=== PATIENT | female | born 1970 | race Caucasian/White ===

== ENCOUNTER → 2017-06-01 | Outpatient (CLI) | payer BC ==
--- NOTE | 2017-06-01 11:30 | USB ---
Reason for exam: additional evaluation requested from abnormal screening. US Breast RT Right breast ultrasound includes all four quadrants, the retroareolar region and axilla. Finding demonstrates a 1.4 x 0.9 x 1.6cm oval, cystic lesion at 1 o'clock, a 0.7 x 0.3 x 0.5cm oval, mixed, hypoechoic lesion at 9 o'clock, a 2.0 x 1.4 x 2.1cm oval, cystic, vascular stalk lesion at 10 o'clock at palpable and a 0.7 x 0.5 x 0.6cm oval, cystic lesion at 10 o'clock. These results were verbally communicated with the patient and result sheet given to the patient on 06/01/17. ASSESSMENT: Probably benign, BI-RAD 3 RECOMMENDATION: Ultrasound of the right breast in 6 months. Manage patient on a clinical basis.
--- NOTE | 2017-06-02 05:15 | WWHP ---
DATE OF SERVICE: 06/01/2017 CHIEF COMPLAINT: The patient is here for her routine gynecologic exam and mammogram. HPI: This is a 46-year-old G3, P3 with an LMP of 2008 who is status post endometrial ablation. The patient states that it has been about 3 years since her last pelvic exam. Her last mammogram was about 5 years ago. She states she has been experiencing right breast soreness for about 3 weeks. She thinks she may have felt a lump on the right side at about the 10 o'clock position. She states the soreness has improved and is very slight at this time. She has also been experiencing infrequent left pelvic pains and believes it may involved her left ovary. She can notice a twinge on the left side once in a while when she moves a certain way such as twisting at the hips. This has been occurring infrequently over the last six months. She believes it occurs about every other month. She wonders if it is related to ovulation. The pains are usually very quick and does not usually stop her from doing her activity. She is otherwise without complaints. Her is status post vasectomy. PAST MEDICAL HISTORY: Anxiety. MEDICATIONS: 1. Paxil CR 12.5 mg daily. 2. Ativan 0.5 mg p.r.n. Allergies to SULFA, PENICILLIN, MACROBID, CEFTIN and BIAXIN, all of which caused rashes or hives. PAST SURGICAL HISTORY: Endometrial ablation in 2008, foot surgery for bunions in 1987. 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 The ablation was for painful menses. PAST OB HISTORY: Three vaginal deliveries. FAMILY HISTORY: Mother has hypertension and thyroid disease. She also has several aunts with thyroid problems. SOCIAL HISTORY: She briefly smoked while in college, but quit after that. She has about 0 to 1 alcoholic drink per week and denies drug use. 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 REVIEW SYSTEMS: She believes she has gained about 10 pounds over the last year. She denies respiratory, cardiac or GI problems. PHYSICAL EXAM: Blood pressure 136/72. Height is 5 feet 1-1/2 inches. Weight 139 pounds. Temperature 97.8. Pulse 56. This is a well-developed, well- nourished white female who is alert and oriented x3 in acute distress. HEENT is within normal limits. NECK: Supple without mass or thyromegaly. CHEST AND LUNGS: Clear to auscultation. HEART: Regular rate and rhythm. BREASTS: There is moderate fibrocystic changes throughout the breast. There is a slightly more prominent fibrous type area at the 10 o'clock position of the right breast measuring approximately 1.5 x 1.5 cm. She states that this is the area of her tenderness. This spot was marked for further breast imaging. There are no other masses noted. There is no nipple discharge. Axillary exam is negative for adenopathy BACK: Negative for CVA tenderness. ABDOMEN: Soft, nontender without palpable masses. PELVIC EXAM: Normal external genitalia. Cervix and vagina appear normal. There is no evidence of prolapse. There is no unusual discharge. There is no cervical motion tenderness. The uterus is mid position, nongravid size and nontender. There are no palpable adnexal masses or tenderness. Rectovaginal exam is negative for mass or tenderness and is negative for occult blood. EXTREMITIES: Nontender. IMPRESSION: 1. A 46-year-old female with a 3-week history of right mastodynia with slightly prominent fibrous type area at the 10 o'clock position of the right breast. Differential diagnosis will include fibrocystic changes as well as possible breast neoplasm. 2. Left pelvic intermittent pains x6 months, which is very infrequent and brief without any significant physical findings at this time. 3. Her is status post vasectomy. PLAN: 1. Pap smear was performed. 2. Self-breast examination was discussed. 3. Diagnostic mammogram with right breast ultrasound will be done today. 4. Pelvic ultrasound will be scheduled. 5. If nothing significant is found with the pelvic ultrasound, will proceed with conservative management. 6. Breast workup and followup will depend on the findings of today's imaging studies. 7. She will return in one year and p.r.n. MTDD
== END | disposition home or self-care (01) ==
LOC: WWCWWP 07:50
PROVIDERS: ATTEND Obstetrics & Gynecology
DX: R92.8 Other abnormal and inconclusive findings on diagnostic imaging of breast (principal); N64.4 Mastodynia
CPT/HCPCS: 76641; G0204

== ENCOUNTER → 2017-06-07 | Outpatient (CLI) | payer BC ==
--- NOTE | 2017-06-07 15:14 | US ---
EXAMINATION TYPE: US pelvic complete DATE OF EXAM: 06/07/2017 COMPARISON: NONE CLINICAL HISTORY: R10.2 Pelvic Pain. Pt states LLQ tenderness/ fullness TECHNIQUE: Transabdominal (TA) Date of LMP: 2008 due to ablation EXAM MEASUREMENTS: Uterus: 8.6 x 3.5 x 4.4 cm Endometrial Stripe: 0.5 cm Right Ovary: 2.2 x 2.1 x 2.5 cm Left Ovary: 3.2 x 1.9 x 2.5 cm 1. Uterus: Anteverted Heterogeneous, with Nabothian cyst in cervix 2. Endometrium: wnl 3. Right Ovary: wnl 4. Left Ovary: wnl 5. Bilateral Adnexa: wnl 6. Posterior cul-de-sac: wnl IMPRESSION: 1. Normal pelvic ultrasound
== END | disposition home or self-care (01) ==
LOC: RADUSWWP 14:12
PROVIDERS: ATTEND Obstetrics & Gynecology
DX: R10.2 Pelvic and perineal pain (principal)
CPT/HCPCS: 76856

== ENCOUNTER → 2018-01-05 | Outpatient (CLI) | payer BC ==
--- NOTE | 2018-01-05 09:37 | USB ---
Reason for exam: follow-up at short interval from prior study. Physical Findings: Nurse Summary: cystic cluster right breast upper outer quadrant 1cm palpable 12 o'clock (nurse mj). US Breast RT Right breast ultrasound includes all four quadrants, the retroareolar region and axilla. Finding demonstrates a 1.3 x 0.9 x 1.4cm oval, cystic lesion at 1 o'clock, a 0.6 x 0.3 x 0.5cm oval, cystic cluster at 1 o'clock, a 0.5 x 0.4 x 0.4cm mixed lesion at 8 o'clock, a 0.7 x 0.4 x 0.5cm oval lesion too small to characterize at 9 o'clock, a 1.6 x 1.1 x 1.4cm oval, cystic lesion at 10 o'clock and a 1.4 x 0.8 x 1.0cm cystic cluster at 10 o'clock. These results were verbally communicated with the patient and result sheet given to the patient on 01/05/18. ASSESSMENT: Benign, BI-RAD 2 RECOMMENDATION: Routine screening mammogram of both breasts in 4 months. Back on schedule for May 2018.
== END | disposition home or self-care (01) ==
LOC: RADUSWWP 08:14
PROVIDERS: ATTEND Obstetrics & Gynecology
DX: N63.10 Unspecified lump in the right breast, unspecified quadrant (principal)

== ENCOUNTER → 2018-06-27 | Outpatient (CLI) | payer BC ==
[2018-06-27 11:45] VITALS: BP 112/66; PULSE 63; TEMP 97.1; BMI 27.1
--- NOTE | 2018-06-27 12:34 | P.HPOB ---
History of Present Illness H&P Date: 06/27/18 Chief Complaint: The patient is here for her routine gynecologic exam and mammogram. This is a 47-year-old G3 PIII with an LMP of 2008. She steps post endometrial ablation with amenorrhea since then. She denies any significant hot flashes and denies any vaginal bleeding. She is without gynecologic complaints. Review of Systems The patient has gained 5 pounds over the last year. She denies respiratory, cardiac, or G.I. problems. 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 She has been amenorrheic since her ablation in 2008 done for dysmenorrhea. 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 - Past Family History Mother Family Medical History: Hypertension, Thyroid Disorder Additional Family Medical History / Comment(s): Several aunts have thyroid problems. Medications and Allergies Home Medications Medication Instructions Recorded Confirmed Type Fluticasone Nasal [place] [Flonase 1 spray EA NOSTRIL DAILY PRN 06/27/18 06/27/18 History Nasal [place]] Allergies Allergy/AdvReac Type Severity Reaction Status Date / Time clarithromycin [From Biaxin] Allergy Rash/Hives Verified 06/27/18 11:40 nitrofurantoin Allergy Rash/Hives Verified 06/27/18 11:40 [From Macrobid] nitrofurantoin Allergy Rash/Hives Verified 06/27/18 11:40 macrocrystalline [From Macrobid] Penicillins Allergy Rash/Hives Verified 06/27/18 11:40 Sulfa (Sulfonamide Allergy Rash/Hives Verified 06/27/18 11:40 Antibiotics) Exam Vital Signs Temp Pulse BP 06/27/18 11:43 97.1 F L 63 112/66 Intake and Output 06/26/18 06/27/18 06/27/18 22:59 06:59 14:59 Other: Weight 65.317 kg Height 5'1", BMI 27.2. This is a well-developed well-nourished white female who is alert and oriented times 3 in no acute distress. HEENT: Within normal limits. NECK: Supple without mass or thyromegaly. CHEST AND LUNGS: Clear to auscultation. HEART: Regular rate and rhythm. BREASTS: Are without mass or discharge. AXILLARY EXAM: Negative for adenopathy. BACK: Negative for CVA tenderness. ABDOMEN: Soft, nontender, without palpable masses. PELVIC EXAM: Normal external genitalia. Cervix and vagina appear normal. There is no unusual discharge. There is no evidence of prolapse. The uterus is midposition, nongravid size and nontender. There are no palpable adnexal masses or tenderness. RECTAL EXAM: negative for mass or tenderness and is negative for occult blood. EXTREMITIES: Nontender. IMPRESSION: 1. 47-year-old female with normal gynecologic exam. 2. Possible perimenopause, with amenorrhea following endometrial ablation. Her is status post vasectomy. PLAN: 1. Pap smear was deferred to since she had a normal one on 06/01/2017. 2. Breast awareness was discussed. 3. Screening mammogram will be done today. 4. Osteoporosis prevention was discussed. 5. She will return in one year.
--- NOTE | 2018-06-29 11:23 | MM ---
Reason for exam: screening (asymptomatic). Last mammogram was performed 1 year and 1 month ago. Physical Findings: A clinical breast exam by your physician is recommended on an annual basis and results should be correlated with mammographic findings. MG Screening Mammo w CAD Bilateral CC and MLO view(s) were taken. Prior study comparison: June 01, 2017, bilateral MG diagnostic mammo w CAD ISAAC. The breast tissue is heterogeneously dense. This may lower the sensitivity of mammography. Finding: There are typically benign, multiple, varied sized, oval masses in both breasts consistent with waxing/waning cysts. No significant changes in finding since June 01, 2017. ASSESSMENT: Benign, BI-RAD 2 RECOMMENDATION: Routine screening mammogram of both breasts in 1 year.
== END | disposition home or self-care (01) ==
LOC: WWCWWP 11:10
PROVIDERS: ATTEND Obstetrics & Gynecology
DX: Z12.31 Encounter for screening mammogram for malignant neoplasm of breast (principal)
CPT/HCPCS: 77067

== ENCOUNTER → 2019-08-07 | Outpatient (CLI) | payer BC ==
[2019-08-07 16:10] VITALS: BP 130/80; PULSE 62; RESP 18; TEMP 98.6; BMI 25.9
--- NOTE | 2019-08-07 16:46 | P.HPOB ---
History of Present Illness H&P Date: 08/07/19 Chief Complaint: The patient is here for her routine gynecologic exam and ma mmogram. This is a 49 year old with an LMP of 2008. She is status post endometrial ablation in 2008 and has been amenorrheic since then. She denies any significant hot flashes and denies any vaginal bleeding. She occasionally wakes up feeling warm at night but this is not a very big problem for her. She is without gynecologic complaints. Review of Systems The patient has lost 7 pounds over the last year. She denies respiratory, cardiac, or G.I. problems. Past Medical History Past Medical History: No Reported History Additional Past Medical History / Comment(s): Seasonal ALLERGIES. 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 She has been amenorrheic since her ablation in 2008 done for dysmenorrhea. History of Any Multi-Drug Resistant Organisms: None Reported Past Surgical History: Uterine Ablation Additional Past Surgical History / Comment(s): foot surgery. Endometrial ablation 2008. Past Psychological History: Anxiety Smoking Status: Former smoker Past Alcohol Use History: Rare Additional Past Alcohol Use History / Comment(s): Quit smoking in college. 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 - Past Family History Mother Family Medical History: Hypertension, Thyroid Disorder Additional Family Medical History / Comment(s): Several aunts have thyroid problems. Medications and Allergies Home Medications Medication Instructions Recorded Confirmed Type Fluticasone Nasal [place] [Flonase 1 spray EA NOSTRIL DAILY PRN 06/27/18 08/07/19 History Nasal [place]] Loratadine [Claritin] 10 mg PO DAILY 08/07/19 08/07/19 History Vortioxetine Hydrobromide 10 mg PO DAILY 08/07/19 08/07/19 History [Trintellix] Allergies Allergy/AdvReac Type Severity Reaction Status Date / Time clarithromycin [From Biaxin] Allergy Rash/Hives Verified 08/07/19 16:10 nitrofurantoin Allergy Rash/Hives Verified 08/07/19 16:10 [From Macrobid] nitrofurantoin Allergy Rash/Hives Verified 08/07/19 16:10 macrocrystalline [From Macrobid] Penicillins Allergy Rash/Hives Verified 08/07/19 16:10 Sulfa (Sulfonamide Allergy Rash/Hives Verified 08/07/19 16:10 Antibiotics) Exam Vital Signs Temp Pulse Resp BP Pulse Ox 08/07/19 16:05 98.6 F 62 18 130/80 97 Intake and Output 08/07/19 08/07/19 08/07/19 06:59 14:59 22:59 Other: Weight 62.142 kg Height 5 feet 1 inch, weight 137 pounds, BMI 25.9. This is a well-developed well-nourished white female who is alert and oriented times 3 in no acute distress. HEENT: Within normal limits. NECK: Supple without mass or thyromegaly. CHEST AND LUNGS: Clear to auscultation. HEART: Regular rate and rhythm. BREASTS: Are without mass or discharge. There is moderate fibrocystic changes throughout the breast. There is slightly more prominent denser fibrous tissue in the upper outer quadrant of the right breast without discrete mass. This is unchanged from her 2017 exam. AXILLARY EXAM: Negative for adenopathy. BACK: Negative for CVA tenderness. ABDOMEN: Soft, nontender, without palpable masses. PELVIC EXAM: Normal external genitalia. Cervix and vagina appear normal. There is no unusual discharge. There is no evidence of prolapse. The uterus is midposition, nongravid size and nontender. There are no palpable adnexal masses or tenderness. RECTAL EXAM: Rectovaginal exam is negative for mass or tenderness and is negati ve for occult blood. EXTREMITIES: Nontender. IMPRESSION: 1. 49 year old perimenopausal female with long history of amenorrhea following her endometrial ablation in 2008, with normal gynecologic exam. 2. Fibrocystic changes of the breast which are stable on examination. PLAN: 1. Pap smear was performed. 2. Self breast awareness was discussed with the patient. 3. Screening Mammogram will be done today. 4. Osteoporosis prevention was discussed. I have stressed the importance of adequate calcium, vitamin D and regular exercise. Recommended amounts of calcium and vitamin D were also discussed. 5. I have recommended screening colonoscopy based on her age. I have recommended that she follow up with her primary care physician to see if they can help her arrange for this. 6. She was advised to return in one year for her annual well woman exam.
--- NOTE | 2019-08-08 10:44 | MM ---
Reason for exam: screening (asymptomatic). Last mammogram was performed 1 year and 1 month ago. Physical Findings: A clinical breast exam by your physician is recommended on an annual basis and results should be correlated with mammographic findings. MG 3D Screening Mammo W/Cad Bilateral CC and MLO view(s) were taken. Prior study comparison: June 27, 2018, bilateral MG screening mammo w CAD. June 01, 2017, bilateral MG diagnostic mammo w CAD ISAAC. The breast tissue is heterogeneously dense. This may lower the sensitivity of mammography. Waxing and waning masses consistent with cysts. No significant changes when compared with prior studies. ASSESSMENT: Benign, BI-RAD 2 RECOMMENDATION: Routine screening mammogram of both breasts in 1 year.
== END ==
LOC: WWCWWP 15:48
PROVIDERS: ATTEND Obstetrics & Gynecology
DX: Z12.31 Encounter for screening mammogram for malignant neoplasm of breast (principal)
CPT/HCPCS: 77063; 77067

== ENCOUNTER → 2021-02-24 | Outpatient (CLI) | payer BC ==
[2021-02-24 16:05] VITALS: BP 119/81; PULSE 79; RESP 16; TEMP 98.3
--- NOTE | 2021-02-24 16:51 | P.HPOB ---
History of Present Illness H&P Date: 02/24/21 Chief Complaint: The patient is here for her routine gynecologic exam and ma mmogram. This is a 50-year-old with an LMP of 2008. The patient has had occasional hot flashes especially last October, but these are now very mild. The patient states she had blood work done to check her menopausal status and her PCP recently. She was told she is probably starting into the menopausal change but I am not able to access the results through the [employer] system. She has been ex periencing some vaginal dryness with sexual intercourse. Review of Systems The patient has gained 10 pounds over the last year. She denies respiratory, cardiac, or G.I. problems. Past Medical History Past Medical History: No Reported History Additional Past Medical History / Comment(s): Seasonal ALLERGIES. 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 She has been amenorrheic since her ablation in 2008 done for dysmenorrhea. History of Any Multi-Drug Resistant Organisms: None Reported Past Surgical History: Uterine Ablation Additional Past Surgical History / Comment(s): foot surgery. Endometrial ablation 2008. Past Psychological History: Anxiety Smoking Status: Former smoker Past Alcohol Use History: Occasional (One per week) Additional Past Alcohol Use History / Comment(s): Quit smoking in college. 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 - Past Family History Mother Family Medical History: Hypertension, Thyroid Disorder Additional Family Medical History / Comment(s): Several aunts have thyroid problems. Medications and Allergies Home Medications Medication Instructions Recorded Confirmed Type Fluticasone Nasal [place] [Flonase 1 spray EA NOSTRIL DAILY PRN 06/27/18 02/24/21 History Nasal [place]] Acetaminophen Tab [Tylenol] 325 mg PO Q4H PRN 02/24/21 02/24/21 History Esomeprazole Magnesium [NexIUM] 20 mg PO DAILY PRN 02/24/21 02/24/21 History Allergies Allergy/AdvReac Type Severity Reaction Status Date / Time clarithromycin [From Biaxin] Allergy Rash/Hives Verified 02/24/21 16:01 nitrofurantoin Allergy Rash/Hives Verified 02/24/21 16:01 [From Macrobid] nitrofurantoin Allergy Rash/Hives Verified 02/24/21 16:01 macrocrystalline [From Macrobid] Penicillins Allergy Rash/Hives Verified 02/24/21 16:01 Sulfa (Sulfonamide Allergy Rash/Hives Verified 02/24/21 16:01 Antibiotics) Exam Vital Signs Temp Pulse Resp BP Pulse Ox 02/24/21 16:03 98.3 F 79 16 119/81 99 Intake and Output 02/24/21 02/24/21 02/24/21 06:59 14:59 22:59 Other: Weight 66.678 kg Height 5 foot 1-1/2 inch, weight 147 pounds, BMI 27.3. This is a well-developed well-nourished white female who is alert and oriented times 3 in no acute distress. HEENT: Within normal limits. NECK: Supple without mass or thyromegaly. CHEST AND LUNGS: Clear to auscultation. HEART: Regular rate and rhythm. BREASTS: Are without mass or discharge. She has very dense breast tissue on exam with greater density in the upper aspect of both breasts. AXILLARY EXAM: Negative for adenopathy. BACK: Negative for CVA tenderness. ABDOMEN: Soft, nontender, without palpable masses. PELVIC EXAM: Normal external genitalia with minimal atrophy. Cervix and vagina appear normal with minimal atrophy. There is no unusual discharge. There is no evidence of prolapse. The uterus is midposition, nongravid size and nontender. There are no palpable adnexal masses or tenderness. RECTAL EXAM: Rectovaginal exam is negative for mass or tenderness and is negative for occult blood. EXTREMITIES: Nontender. IMPRESSION: 1. 50-year-old perimenopausal female who has been amenorrheic since her 2009 endometrial ablation, with normal gynecologic exam. 2. Vaginal dryness with sexual intercourse probably related to the perimenopausal change. PLAN: 1. Pap smear was deferred since she had a normal one on 08/07/2019. 2. Self breast awareness was discussed with the patient. 3. Screening mammogram will be done today. 4. She will try to access her FSH and estradiol results online that was done through her PCP and try to send me a copy. 5. She has completed her Covid vaccination series. 6. I have recommended screening colonoscopy based on her age and she states she will do this through her PCP. 7.Osteoporosis prevention was discussed. I have stressed the importance of adequate calcium, vitamin D and regular exercise. Recommended amounts of calcium and vitamin D were also discussed. 8. She was advised to return in one year for her annual well woman exam.
--- NOTE | 2021-02-25 09:26 | MM ---
Reason for exam: screening (asymptomatic). Last mammogram was performed 1 year and 7 months ago. History: Patient is postmenopausal. Physical Findings: A clinical breast exam by your physician is recommended on an annual basis and results should be correlated with mammographic findings. MG 3D Screening Mammo W/Cad Bilateral CC and MLO view(s) were taken. Prior study comparison: August 07, 2019, bilateral MG 3d screening mammo w/cad. June 27, 2018, bilateral MG screening mammo w CAD. The breast tissue is heterogeneously dense. This may lower the sensitivity of mammography. Waxing and waning mass left breast consistent with cyst. No significant changes when compared with prior studies. ASSESSMENT: Benign, BI-RAD 2 RECOMMENDATION: Routine screening mammogram of both breasts in 1 year.
== END ==
LOC: WWCWWP 15:54
PROVIDERS: ATTEND Obstetrics & Gynecology
DX: Z01.419 Encounter for gynecological examination (general) (routine) without abnormal findings (principal); F41.9 Anxiety disorder, unspecified; N89.9 Noninflammatory disorder of vagina, unspecified; Z78.0 Asymptomatic menopausal state; Z87.891 Personal history of nicotine dependence
CPT/HCPCS: 77063; 77067

== ENCOUNTER → 2022-10-05 | Outpatient (CLI) | payer BC ==
[2022-10-05 12:56] VITALS: BP 116/75; PULSE 72; RESP 16; TEMP 97.8
--- NOTE | 2022-10-05 13:43 | P.HPOB ---
History of Present Illness H&P Date: 10/05/22 Chief Complaint: The patient is here for her routine gynecologic exam and ma mmogram. This is a 52-year-old with an LMP of 2008. The patient states she had worsening of hot flashes during this past year, but they seem to be getting slightly better recently. She has also been experiencing vaginal dryness. She does use a lubricant, but it does not work for very long. She has tried different kinds of lubricants without much success. Review of Systems The patient has gained 10 pounds over the last year. She denies respiratory, cardiac, or G.I. problems. Past Medical History Past Medical History: No Reported History Additional Past Medical History / Comment(s): Seasonal ALLERGIES. Recurrent urticaria 2021. 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 She has been amenorrheic since her ablation in 2008 done for dysmenorrhea. History of Any Multi-Drug Resistant Organisms: None Reported Past Surgical History: Uterine Ablation Additional Past Surgical History / Comment(s): foot surgery. Endometrial ablation 2008. Past Psychological History: Anxiety Smoking Status: Former smoker Past Alcohol Use History: Occasional (0-1 week) Additional Past Alcohol Use History / Comment(s): Quit smoking in college. 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 - Past Family History Mother Family Medical History: Hypertension, Thyroid Disorder Additional Family Medical History / Comment(s): Several aunts have thyroid problems. Medications and Allergies Home Medications Medication Instructions Recorded Confirmed Type Acetaminophen Tab [Tylenol] 325 mg PO Q4H PRN 02/24/21 10/05/22 History Cetirizine HCl 10 mg PO DAILY 10/05/22 10/05/22 History Cholecalciferol [Vitamin D3 (125 125 mcg PO DAILY 10/05/22 10/05/22 History Mcg = 5000 Iu)] Famotidine 20 mg PO BID 10/05/22 10/05/22 History Allergies Allergy/AdvReac Type Severity Reaction Status Date / Time clarithromycin [From Biaxin] Allergy Rash/Hives Verified 10/05/22 12:51 nitrofurantoin Allergy Rash/Hives Verified 10/05/22 12:51 [From Macrobid] nitrofurantoin Allergy Rash/Hives Verified 10/05/22 12:51 macrocrystalline [From Macrobid] Penicillins Allergy Rash/Hives Verified 10/05/22 12:51 Sulfa (Sulfonamide Allergy Rash/Hives Verified 10/05/22 12:51 Antibiotics) Exam Vital Signs Temp Pulse Resp BP Pulse Ox 10/05/22 12:53 97.8 F 72 16 116/75 99 Intake and Output 10/04/22 10/05/22 10/05/22 22:59 06:59 14:59 Other: Weight 71.214 kg Height 5 foot 1 inch, weight 157 pounds, BMI 29.7. This is a well-developed well-nourished white female who is alert and oriented times 3 in no acute distress. HEENT: Within normal limits. NECK: Supple without mass or thyromegaly. CHEST AND LUNGS: Clear to auscultation. HEART: Regular rate and rhythm. BREASTS: Are without mass or discharge. AXILLARY EXAM: Negative for adenopathy. BACK: Negative for CVA tenderness. ABDOMEN: Soft, nontender, without palpable masses. PELVIC EXAM: Normal external genitalia with minimal atrophy. Cervix and vagina appear normal with minimal atrophy. There is no unusual discharge. There is no evidence of prolapse. The uterus is midposition, nongravid size and nontender. There are no palpable adnexal masses or tenderness. RECTAL EXAM: Rectovaginal exam is negative for mass or tenderness and is negative for occult blood. EXTREMITIES: Nontender. IMPRESSION: 1. 52-year-old menopausal female with normal gynecologic exam. 2. Vaginal dryness with sexual intercourse not significantly improved with [id number]-[id number] lubricants. PLAN: 1. Pap smear cotest was performed. 2. Self breast awareness was discussed with the patient. We have also discussed symptoms associated with inflammatory breast cancer. 3. Screening mammogram will be done today. 4. She would like to have a trial of Premarin vaginal cream. The prescription will be sent to [email or web address] pharmacy in [place]. She can also continue to use lubricants, if helpful. 5. Osteoporosis prevention was discussed. I have stressed the importance of adequate calcium, vitamin D and regular exercise. Recommended amounts of calcium and vitamin D were also discussed. 6. I have recommended screening colonoscopy based on her age. She will discuss this with her PCP and will also discussed colorectal cancer screening options. 7. She has completed her Covid vaccination series and has had is least 2 boosters. 8. She was advised to return in one year for her annual well woman exam.
--- NOTE | 2022-10-06 11:02 | MM ---
Reason for Exam: Screening (asymptomatic). Last mammogram was performed 1 year(s) and 7 month(s) ago. Patient History: Menarche at age 15. First Full-Term at age 25. Postmenopausal. Risk Values: Aleah 5 year model risk: 1.1%. NCI Lifetime model risk: 8.6%. Prior Study Comparison: 06/27/2018 Bilateral Screening Mammogram, [facility]. 08/07/2019 Bilateral Screening Mammogram, [facility]. 02/24/2021 Bilateral Screening Mammogram, [facility]. Tissue Density: The breast tissue is heterogeneously dense. This may lower the sensitivity of mammography. Findings: Analyzed By CAD. There is fluctuating nodularity, not significantly smaller in size within the 9:00 left breast suggesting a benign cyst. Otherwise, no significant change. Overall Assessment: Benign, BI-RAD 2 Management: Screening Mammogram of both breasts in 1 year. 1. Patient should continue monthly self breast exams. 2. A clinical breast exam by your physician is recommended on an annual basis. 3. This exam should not preclude additional follow-up of suspicious palpable abnormalities. Electronically signed and approved by: Jung Elkins M.D. Radiologist
== END ==
LOC: WWCWWP 12:23
PROVIDERS: ATTEND Obstetrics & Gynecology
DX: Z01.419 Encounter for gynecological examination (general) (routine) without abnormal findings (principal); Z12.31 Encounter for screening mammogram for malignant neoplasm of breast; Z78.0 Asymptomatic menopausal state; Z88.1 Allergy status to other antibiotic agents; Z88.0 Allergy status to penicillin; Z88.2 Allergy status to sulfonamides; Z87.891 Personal history of nicotine dependence
CPT/HCPCS: 77063; 77067

== ENCOUNTER → 2022-11-02 | Outpatient (CLI) | payer BC ==
[2022-11-02 22:50] LABS: Basophils # (A) 0.08 X 10*3/uL (0.00-0.10); Basophils % (A) 0.9 %; Eosinophils # (A) 0.28 X 10*3/uL (0.04-0.35); Eosinophils % (A) 3.1 %; HCT 40.4 % (37.2-46.3); HGB 13.3 g/dL (12.0-15.0); Immature Grans, Automated 0.2 %; Lymphocytes # (A) 2.54 X 10*3/uL (0.90-5.00); Lymphocytes % (A) 28.5 %; MCH 29.3 pg (27.0-32.0); MCHC 32.9 g/dL (32.0-37.0); Mean Platelet Volume 12.6 fL (9.5-12.2); Monocytes # (A) 0.54 X 10*3/uL (0.20-1.00); Monocytes % (A) 6.1 %; NRBC Per 100 WBC 0 /100 WBCS (0.0-0.0); Neutrophils # (A) 5.46 X 10*3/uL (1.80-7.70); Neutrophils % (A) 61.2 %; Platelet Count 254 X 10*3/uL (140-440); RBC 4.54 X 10*6/uL (4.10-5.20); RDW 12.8 % (11.5-14.5); WBC 8.92 X 10*3/uL (4.50-10.00)
== END | disposition home or self-care (01) ==
LOC: LABPAT 14:11
PROVIDERS: ATTEND Obstetrics & Gynecology
DX: Z01.812 Encounter for preprocedural laboratory examination (principal); R87.613 High grade squamous intraepithelial lesion on cytologic smear of cervix (HGSIL)
CPT/HCPCS: 85025

== ENCOUNTER 2022-11-08 06:12 | Day surgery (SDC) | payer BC ==
[2022-11-04 13:45] VITALS: BMI 29.0
[~2022-11-08 06:12] MED LIST: Pre Op ABX Message 1 EACH MISC MISCELLANE ONE
[2022-11-08] MEDS ORDERED: LACTATED RINGERS 1,000 ML IV ONE ×2 (06:48→08:55)
[2022-11-08] MEDS ORDERED: ONDANSETRON 4 MG/2 ML VIAL ONE (06:53)
[2022-11-08] MEDS ORDERED: DEXAMETHASONE SOD PHOSPHATE 4 MG/ML 1 ML VIAL IVP ONE (07:07)
[2022-11-08] MEDS ORDERED: PROPOFOL 10 MG/ML 20 ML VIAL IV ONE (07:25)
[2022-11-08] MEDS ORDERED: SUCCINYLCHOLINE CHLORIDE 200 MG/10 ML VIAL IV ONE (07:25)
[2022-11-08] MEDS ORDERED: LIDOCAINE 2% INJ 20 MG/ML (2 ML VIAL) ONE (07:25)
[2022-11-08] MEDS ORDERED: MIDAZOLAM 2 MG/2 ML VIAL ONE (07:25)
[2022-11-08] MEDS ORDERED: KETOROLAC 15 MG/ML 1 ML VIAL ONE (07:25)
[2022-11-08] MEDS ORDERED: fentaNYL (PF) 50 MCG/ML 2 ML AMP ONE (07:25)
[2022-11-08] MEDS ORDERED: ACETIC ACID 15 DROPS/ML DROPS MISCELLANE ONE (07:38)
[2022-11-08] MEDS ORDERED: VASOPRESSIN 20 UNIT/ML 1 ML VIAL SQ ONE ×2 (07:38)
[2022-11-08] MEDS ORDERED: FERRIC SUBSULFATE (MONSELS) JAR TOPICAL ONE (07:38)
[2022-11-08] MEDS ORDERED: IODINE/POTASS IOD (LUGOLS) BOTTLE TOPICAL ONE (07:38)
--- NOTE | 2022-11-08 08:04 | P.OP ---
Date of Procedure: 11/08/22 Preoperative Diagnosis: High-grade RANDA multiple locations, positive ECC Postoperative Diagnosis: Same, pathology pending Procedure(s) Performed: Cold knife conization, endocervical curettage Anesthesia: FATUMAA Surgeon: Kimberley Mckenzie Estimated Blood Loss (ml): 5 IV fluids (ml): 700 Urine output (ml): 100 Pathology: other (Cervical conization specimen, suture tagged at 12:00, endocervical curettage) Description of Procedure: Patient is brought to the operating suite where general anesthetic is administered. She's placed in the dorsal lithotomy position. The cervix, vagina, lower abdomen are all prepped and draped in usual sterile fashion. The appropriate timeout is performed to assure proper patient and procedural identification. Weighted speculum was placed into the vagina. Bladder is drained for approximately 100 mL of clear yellow urine. This suture is injected circumferentially with a dilute Pitressin solution. 0 Vicryl suture is placed on the cervix from 2:00 to 4:00, as well as 10:00 to 8:00, tied and held laterally. Lugol's solution is now placed on the surface of the cervix. A sharp scalpel is used circumferentially to remove a large conization specimen. It is sutured tagged at 12:00 and sent to pathology. Endocervical curettage was then performed and sent under separate cover. The cervical base is then cauterized vigorously with electrocautery. Hemostasis is excellent. Monsel solution is applied. Stay sutures are removed. All sponge needle and enhancement counts are correct. Patient is brought back to recovery room in stable condition with blood pressure 89/59, pulse 60, 98% O2 saturation. She is given Toradol prior to leaving the operative suite. She will follow-up with me in the office in 2 weeks.
[2022-11-08 08:22] VITALS: RESP 16; TEMP 98.4
[2022-11-08] MEDS ORDERED: HYDROmorphone 0.5 MG/0.5 ML SYRINGE ONE (08:42)
[2022-11-08] MEDS ORDERED: HYDROmorphone 0.5 MG/0.5 ML SYRINGE IVP ONE (08:42)
[2022-11-08] MEDS ORDERED: ACETAMINOPHEN TAB 500 MG TAB PO ONE (09:18)
[2022-11-08] MEDS ORDERED: ACETAMINOPHEN TAB 500 MG TAB ONE (09:18)
[2022-11-08 09:55] VITALS: BP 126/67; PULSE 65
== END 2022-11-08 10:15 | disposition home or self-care (01) ==
LOC: OR 06:12
PROVIDERS: ATTEND Obstetrics & Gynecology
DX: N87.1 Moderate cervical dysplasia (principal); N88.8 Other specified noninflammatory disorders of cervix uteri; Z88.0 Allergy status to penicillin; Z88.1 Allergy status to other antibiotic agents; Z88.2 Allergy status to sulfonamides; Z88.8 Allergy status to other drugs, medicaments and biological substances; K21.9 Gastro-esophageal reflux disease without esophagitis; Z87.891 Personal history of nicotine dependence; Z79.891 Long term (current) use of opiate analgesic; Z79.811 Long term (current) use of aromatase inhibitors; Z79.899 Other long term (current) drug therapy; Z79.1 Long term (current) use of non-steroidal anti-inflammatories (NSAID); Z98.890 Other specified postprocedural states; Z82.49 Family history of ischemic heart disease and other diseases of the circulatory system; Z83.49 Family history of other endocrine, nutritional and metabolic diseases; Z82.0 Family history of epilepsy and other diseases of the nervous system; F10.20 Alcohol dependence, uncomplicated
CPT/HCPCS: 57520; 81025; 88305; 88307; J2250; J0330; J1100; J2405; J3010; J1885; J2704; J1170; J2001

== ENCOUNTER → 2023-10-11 | Outpatient (CLI) | payer BC ==
[2023-10-11 13:03] VITALS: BP 127/82; PULSE 66; RESP 16; TEMP 98.5
--- NOTE | 2023-10-11 13:39 | P.HPOB ---
History of Present Illness H&P Date: 10/11/23 Chief Complaint: The patient is here for her routine gynecologic exam and ma mmogram. This is a 53-year-old with an LMP of 2008. She has been amenorrheic since her endometrial ablation. She states she did have what testing through her PCP that indicated that she was menopausal. She is complaining of dyspareunia secondary to vaginal dryness with sexual intercourse. She states she did not use the Premarin vaginal cream which was prescribed last year because of the treatment was needed for her abnormal Pap smears. Her Pap smear last year and back as high-grade RANDA with positive high-risk HPV testing. Cold knife conization of the cervix was performed by Dr. Mckenzie on 11-08-22 and this showed high-grade RANDA with a low-grade changes at the ectocervical margin. Review of Systems The patient has lost 3 pounds over the last year. She denies respiratory, cardiac, or G.I. problems. Past Medical History Past Medical History: No Reported History, GERD/Reflux Additional Past Medical History / Comment(s): Seasonal ALLERGIES. Recurrent urticaria 2021. 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 Conization done for high-grade dysplasia 2021. History of Any Multi-Drug Resistant Organisms: None Reported Past Surgical History: Uterine Ablation Additional Past Surgical History / Comment(s): foot surgery. Endometrial ablation 2008. Conization of the cervix 11/08/22. Past Anesthesia/Blood Transfusion Reactions: Postoperative Nausea & Vomiting (PONV) Past Psychological History: Anxiety Smoking Status: Former smoker Past Alcohol Use History: Occasional (0-1 drink per week.) Additional Past Alcohol Use History / Comment(s): started smoking at age 17 quit at age 21 smoked less than pack a week. 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 - Past Family History Mother Family Medical History: Hypertension, Thyroid Disorder Additional Family Medical History / Comment(s): Several aunts have thyroid problems. Medications and Allergies Home Medications Medication Instructions Recorded Confirmed Type Acetaminophen Tab [Tylenol] 325 mg PO Q4H PRN 02/24/21 10/11/23 History Cholecalciferol [Vitamin D3 (125 125 mcg PO DAILY 10/05/22 10/11/23 History Mcg = 5000 Iu)] Cetirizine HCl [Zyrtec] 20 mg PO DAILY 11/04/22 10/11/23 History Escitalopram [Lexapro] 5 mg PO DAILY 10/11/23 10/11/23 History Multivitamin/Iron/Folic Acid 1 each PO DAILY 10/11/23 10/11/23 History [Centrum Women Tablet] Omeprazole 20 mg PO DAILY 10/11/23 10/11/23 History Allergies Allergy/AdvReac Type Severity Reaction Status Date / Time clarithromycin [From Biaxin] Allergy Rash/Hives Verified 10/11/23 12:47 nitrofurantoin Allergy Rash/Hives Verified 10/11/23 12:47 [From Macrobid] nitrofurantoin Allergy Rash/Hives Verified 10/11/23 12:47 macrocrystalline [From Macrobid] Penicillins Allergy Rash/Hives Verified 10/11/23 12:47 Sulfa (Sulfonamide Allergy Rash/Hives Verified 10/11/23 12:47 Antibiotics) Exam Vital Signs Temp Pulse Resp BP Pulse Ox 10/11/23 12:49 98.5 F 66 16 127/82 96 Intake and Output 10/10/23 10/11/23 10/11/23 22:59 06:59 14:59 Other: Weight 69.853 kg Height 5 feet 1-1/2 inches, weight 154 pounds, BMI 28.6. This is a well-developed well-nourished white female who is alert and oriented times 3 in no acute distress. HEENT: Within normal limits. NECK: Supple without mass or thyromegaly. CHEST AND LUNGS: Clear to auscultation. HEART: Regular rate and rhythm. BREASTS: Are without mass or discharge. AXILLARY EXAM: Negative for adenopathy. BACK: Negative for CVA tenderness. ABDOMEN: Soft, nontender, without palpable masses. PELVIC EXAM: Normal external genitalia with minimal atrophy. Cervix and vagina appear normal mild atrophy. The cervix is fairly flush to the back of the vagina and is somewhat stenotic consistent with her previous conization of the cervix and menopausal status. There is no unusual discharge. There is no evidence of prolapse. The uterus is midposition, nongravid size and nontender. There are no palpable adnexal masses or tenderness. RECTAL EXAM: Rectovaginal exam is negative for mass or tenderness and is negative for occult blood. EXTREMITIES: Nontender. IMPRESSION: 1. 53-year-old menopausal female status post conization of the cervix for high- grade dysplasia on 11/08/2022. 2. Dyspareunia with vaginal dryness secondary to genital atrophy not significantly improved with [id number]-[id number] lubricants. PLAN: 1. Pap smear cotest was performed. 2. Self breast awareness was discussed with the patient. We have also discussed symptoms associated with inflammatory breast cancer. 3. Screening mammogram will be done today. 4. She did not use the Premarin vaginal cream as prescribed last year but she would like to try this now. One sample tube of the Premarin vaginal cream was given to the patient. She is to insert 1 g into the vagina 2 times weekly. The electronic prescription will be sent to [id number] pharmacy in [place]. 5. Osteoporosis prevention was discussed. I have stressed the importance of adequate calcium, vitamin D and regular exercise. Recommended amounts of calcium and vitamin D were also discussed. 6. She was advised to return in one year for her annual well woman exam and as needed.
--- NOTE | 2023-10-13 12:06 | MM ---
Reason for Exam: Screening (asymptomatic). Last mammogram was performed 1 year(s) and 1 month(s) ago. Patient History: Menarche at age 15. First Full-Term at age 25. Postmenopausal. Risk Values: Aleah 5 year model risk: 1.2%. NCI Lifetime model risk: 8.5%. Prior Study Comparison: 08/07/2019 Bilateral Screening Mammogram, [facility]. 02/24/2021 Bilateral Screening Mammogram, [facility]. 10/05/2022 Bilateral MG 3D screening mammo w/cad, [facility]. Tissue Density: The breast tissue is heterogeneously dense. This may lower the sensitivity of mammography. Findings: Analyzed By CAD. There is no suspicious group of microcalcifications or new suspicious mass in either breast. Overall Assessment: Benign, BI-RAD 2 Management: Screening Mammogram of both breasts in 1 year. . Patient should continue monthly self-breast exams. A clinical breast exam by your physician is recommended on an annual basis. This exam should not preclude additional follow-up of suspicious palpable abnormalities. Note on Aleah scores and lifetime risk: 1. A Aleah score greater than 3% is considered moderate risk. If this is the case, consider specialist referral to assess eligibility for a risk reducing agent. 2. If overall lifetime risk for the development of breast cancer is 20% or higher, the patient may qualify for future screening with alternating mammogram and breast MRI. Electronically signed and approved by: Alan Shaikh M.D. Radiologis
== END ==
LOC: WWCWWP 12:29
PROVIDERS: ATTEND Obstetrics & Gynecology
DX: Z12.31 Encounter for screening mammogram for malignant neoplasm of breast (principal); F41.9 Anxiety disorder, unspecified; N94.10 Unspecified dyspareunia; Z11.51 Encounter for screening for human papillomavirus (HPV); Z78.0 Asymptomatic menopausal state; Z99.89 Dependence on other enabling machines and devices; Z87.891 Personal history of nicotine dependence; Z88.0 Allergy status to penicillin; Z88.1 Allergy status to other antibiotic agents; Z88.2 Allergy status to sulfonamides
CPT/HCPCS: 77063; 77067

== ENCOUNTER 2023-12-30 08:59 | Day surgery (SDC) | payer BC ==
[2023-12-28 10:03] VITALS: BMI 29.2
[2023-12-30 09:57] VITALS: TEMP 97.8
[2023-12-30] MEDS: LACTATED RINGERS 1,000 ML IV SCH (10:01)
[2023-12-30] MEDS ORDERED: LIDOCAINE 1% INJ 10MG/ML (20 ML MDV) ONE (10:41)
[2023-12-30] MEDS ORDERED: PROPOFOL 10 MG/ML 20 ML VIAL IV ONE (10:41)
[2023-12-30] MEDS ORDERED: fentaNYL (PF) 50 MCG/ML 2 ML AMP ONE (10:41)
[2023-12-30] MEDS ORDERED: MIDAZOLAM 2 MG/2 ML VIAL ONE (10:41)
--- NOTE | 2023-12-30 11:20 | P.PCN ---
Date of Procedure: 12/30/23 Procedure(s) Performed: BRIEF HISTORY: Patient is a 53-year-old, pleasant, WHITE female scheduled for an upper endoscopy as a part of evaluation of epigastric pain for the last several months duration. She is on omeprazole 20 mg daily and symptoms are gradually improving.. PROCEDURE PERFORMED: Esophagogastroduodenoscopy with biopsy. PREOPERATIVE DIAGNOSIS: Chronic epigastric pain. IV sedation per anesthesia. PROCEDURE: After informed consent was obtained, the patient was brought into the endoscopy unit. IV sedation was administered by Anesthesia under continuous monitoring. Initially the Olympus GIF-140 video endoscope was inserted into the mouth. Esophagus intubated without any difficulty. It was gradually advanced into the stomach and duodenum and carefully examined. The bulb and the second part of the duodenum appeared normal. Biopsies were done from the duodenum to rule out celiac disease. The scope at this time was withdrawn to the stomach, adequately insufflated with air, and upon careful examination, mucosa of the antrum, had mild gastritis and biopsies were done from this area. Mucosa of the body, cardia and the fundus appeared normal. The scope was then withdrawn into the esophagus. The GE junction was located at 39 cm from the incisors. The esophagus appeared normal. There were no erosions or ulcerations seen and the patient tolerated the procedure well. IMPRESSION: 1. Mild antral gastritis. 2. No evidence of esophagitis or peptic ulcer disease. RECOMMENDATIONS: The findings of this examination were discussed with the patient as well as a family. She was advised to follow with the biopsy results. Continue with omeprazole 20 mg daily and follow antireflux measures..
[2023-12-30 11:33] VITALS: BP 112/77; PULSE 68; RESP 16
== END 2023-12-30 11:34 | disposition home or self-care (01) ==
LOC: ORWHC2ENDO 08:59
PROVIDERS: ATTEND Internal Medicine Gastroenterology
DX: K29.50 Unspecified chronic gastritis without bleeding (principal); G89.29 Other chronic pain; K21.9 Gastro-esophageal reflux disease without esophagitis; F41.9 Anxiety disorder, unspecified; Z88.2 Allergy status to sulfonamides; Z79.899 Other long term (current) drug therapy; Z88.0 Allergy status to penicillin; Z88.8 Allergy status to other drugs, medicaments and biological substances; Z88.1 Allergy status to other antibiotic agents
CPT/HCPCS: 88305; 43239; J2250; J2001; J3010; J2704

== ENCOUNTER → 2025-04-23 | Outpatient (CLI) | payer BC ==
[2025-04-23 11:43] VITALS: BP 111/76; PULSE 57; RESP 16; TEMP 98.9
--- NOTE | 2025-04-23 12:13 | P.HPOB ---
History of Present Illness H&P Date: 04/23/25 Chief Complaint: The patient is here for her routine gynecologic exam and ma mmogram. This is a 54-year-old with an LMP of 2008. The patient has been experiencing discomfort with intercourse, mostly with initial penetration, there can feel like there is a ring of vaginal tissue which is rough or dry, despite using lubrication. She was prescribed Premarin vaginal cream which she states she did try, but did not use it consistently and only used it for short time. S he is otherwise without gynecologic complaints and denies any postmenopausal bleeding. Review of Systems The patient's weight has been stable over the last year. She denies respiratory, cardiac, or G.I. problems. Past Medical History Past Medical History: GERD/Reflux Additional Past Medical History / Comment(s): Seasonal ALLERGIES. Recurrent urticaria 2021. 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 Conization done for high-grade dysplasia 2021. History of Any Multi-Drug Resistant Organisms: None Reported Past Surgical History: Uterine Ablation Additional Past Surgical History / Comment(s): LT foot surgery. Endometrial ablation 2008. Conization of the cervix 11/08/22. COLONOSCOPY. EGD 2023 Past Anesthesia/Blood Transfusion Reactions: Postoperative Nausea & Vomiting (PONV) Past Psychological History: Anxiety Smoking Status: Former smoker Past Alcohol Use History: Occasional (0 to 2/month.) Additional Past Alcohol Use History / Comment(s): started smoking at age 17 quit at age 21 smoked less than pack a week. 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 - Past Family History Mother Family Medical History: Hypertension, Thyroid Disorder Additional Family Medical History / Comment(s): Several aunts have thyroid problems. Medications and Allergies Home Medications Medication Instructions Recorded Confirmed Type Acetaminophen Tab [Tylenol] 325 mg PO Q4H PRN 02/24/21 12/30/23 History Cetirizine HCl [Zyrtec] 10 mg PO DAILY 11/04/22 12/30/23 History Omeprazole 20 mg PO DAILY 10/11/23 12/30/23 History Escitalopram [Lexapro] 10 mg PO DAILY 12/28/23 12/30/23 History Cholecalciferol (Vitd3)/Vit K2 1 each PO DAILY 04/23/25 04/23/25 History [Vit D3-Vit K2 125-100 Mcg Sfgl] [place]-3/Dha/Epa/Fish Oil [[place]-3 1 each PO DAILY 04/23/25 04/23/25 History Gummy Chewables] Allergies Allergy/AdvReac Type Severity Reaction Status Date / Time clarithromycin [From Biaxin] Allergy Rash/Hives Verified 12/30/23 09:43 nitrofurantoin Allergy Rash/Hives Verified 12/30/23 09:43 [From Macrobid] nitrofurantoin Allergy Rash/Hives Verified 12/30/23 09:43 macrocrystalline [From Macrobid] Penicillins Allergy Rash/Hives Verified 12/30/23 09:43 Sulfa (Sulfonamide Allergy Rash/Hives Verified 12/30/23 09:43 Antibiotics) Exam Vital Signs Temp Pulse Resp BP Pulse Ox 04/23/25 11:37 98.9 F 57 L 16 111/76 96 Intake and Output 04/22/25 04/23/25 04/23/25 22:59 06:59 14:59 Other: Weight 68.946 kg Height 5 feet 3 inches, weight 152 pounds, BMI 26.9. This is a well-developed well-nourished white female who is alert and oriented times 3 in no acute distress. HEENT: Within normal limits. NECK: Supple without mass or thyromegaly. CHEST AND LUNGS: Clear to auscultation. HEART: Regular rate and rhythm. BREASTS: Are without mass or discharge. AXILLARY EXAM: Negative for adenopathy. BACK: Negative for CVA tenderness. ABDOMEN: Soft, nontender, without palpable masses. PELVIC EXAM: Normal external genitalia with mild atrophy. Vagina appear normal with mild atrophy. The vagina is fairly flush to the vagina consistent with her previous conization of the cervix. There are no cervical lesions. There is a fairly narrow opening at the outer third of the vagina in the area of the pubic bone. The muscle tone seems to be slightly increased making for a narrower opening. There is no unusual discharge. There is no evidence of prolapse. The uterus is midposition, nongravid size and nontender. There are no palpable adnexal masses or tenderness. RECTAL EXAM: Rectovaginal exam is negative for mass or tenderness and is negative for occult blood. EXTREMITIES: Nontender. IMPRESSION: 1. 54-year-old menopausal female status post cold knife conization of the cervix in 2022 for ZULMA-2 to 3. 2. Slight narrowing of the vagina at the outer third, probably consistent with mild vaginismus with genital atrophy. A combination of these factors are pr obably contributing to dyspareunia. PLAN: 1. Pap smear cotest was performed. This will again be repeated in 1 year. If they are all negative we will then plan on decreasing Pap smears to about every 2 to 3 years. 2. Self breast awareness was discussed with the patient. We have also discussed symptoms associated with inflammatory breast cancer. 3. Screening mammogram will be done today. 4. Trial of Vagifem 10 mcg into the vagina 2 times weekly. The electronic prescription will be sent to [facility] pharmacy in [facility]. I have also discussed doing her best at trying to relax the muscles around the vagina. She can do relaxation types of exercises using her fingers or sex toy objects in the vagina while trying to relax the muscles. I have also stressed the importance of having her penetrate very slowly with adequate lubrication. Typically sees he has inserted beyond the outer third of the vagina, the muscles should be able to relax a little easier. Tense muscles may decrease the space for initial penetration from and then we will try to have her actively relax the muscles upon initial penetration. 5. Osteoporosis prevention was discussed. I have stressed the importance of adequate calcium, vitamin D and regular exercise. Recommended amounts of calcium and vitamin D were also discussed. 6. She was advised to return in one year for her annual well woman exam and as needed.
--- NOTE | 2025-04-23 15:45 | MM ---
Reason for Exam: Screening (asymptomatic). Last mammogram was performed 1 year(s) and 6 month(s) ago. Patient History: Menarche at age 15. First Full-Term at age 25. Postmenopausal. Risk Values: Aleah 5 year model risk: 1.2%. NCI Lifetime model risk: 8.3%. Prior Study Comparison: 02/24/2021 Bilateral Screening Mammogram, [facility]. 10/05/2022 Bilateral MG 3D screening mammo w/cad, [facility]. 10/11/2023 Bilateral MG 3D screening mammo w/cad, [facility]. Tissue Density: The breasts are heterogeneously dense, which may obscure small masses. Findings: Analyzed By CAD. Chronic nodularity on the left. There is no suspicious group of microcalcifications or new suspicious mass in either breast. Overall Assessment: Benign, BI-RAD 2 Management: Screening Mammogram of both breasts in 1 year. Patient should continue monthly self-breast exams. A clinical breast exam by your physician is recommended on an annual basis. This exam should not preclude additional follow-up of suspicious palpable abnormalities. Note on Aleah scores and lifetime risk: 1. A Aleah score greater than 3% is considered moderate risk. If this is the case, consider specialist referral to assess eligibility for a risk reducing agent. 2. If overall lifetime risk for the development of breast cancer is 20% or higher, the patient may qualify for future screening with alternating mammogram and breast MRI. [facility], , 04/23/2025 3:42 PM. Electronically signed and approved by: Jung Elkins M.D. Radiologist
== END ==
LOC: WWCWWP 11:16
PROVIDERS: ATTEND Obstetrics & Gynecology
DX: Z01.419 Encounter for gynecological examination (general) (routine) without abnormal findings (principal); Z12.31 Encounter for screening mammogram for malignant neoplasm of breast; N94.10 Unspecified dyspareunia; Z78.0 Asymptomatic menopausal state; Z88.0 Allergy status to penicillin; Z88.1 Allergy status to other antibiotic agents; Z88.2 Allergy status to sulfonamides; Z88.8 Allergy status to other drugs, medicaments and biological substances; Z87.891 Personal history of nicotine dependence
CPT/HCPCS: 77063; 77067